=== PATIENT | female | born 1955 | race Caucasian/White ===

== ENCOUNTER → 2019-02-17 | Outpatient (CLI) | payer MEDICARE, BC ==
[2015-05-12 11:18] VITALS: BP 125/71
[~2019-02-17] MED LIST: FLUT1DIS3 IH; HYDR-2761 PO; IOHEXOL 240 MG/ML 50ML VIAL. PO ONE; IOHEXOL 300 MG/ML 100ML VIAL. IV ONE; LANS30CA PO; SERT100T8 PO; THEO400T2 PO; TRAZ-118 PO
--- NOTE | 2019-02-17 11:13 | KCIC ---
PQRS Compliance Statement: One or more of the following individualized dose reduction techniques were utilized for this examination: 1. Automated exposure control 2. Adjustment of the mA and/or kV according to patient size 3. Use of iterative reconstruction technique CT abdomen/pelvis with contrast 02/17/2019 10:00 AM INDICATION: Umbilical pain with severe abdominal pain radiating to the back. History of umbilical hernia repair. COMPARISON: None available TECHNIQUE: Multiple axial CT images of the abdomen and pelvis were obtained after the intravenous administration of 89 mL Omnipaque 300. Coronal and sagittal reformats are provided. FINDINGS: There is subsegmental atelectasis at the right lung base. Trace right pleural effusion. Heart size is within normal limits. Evaluation of the abdomen is limited by streak artifact from lumbar hardware. Liver, spleen, right adrenal gland and pancreas are normal. Suspect dilatation of the common bile duct measuring up to 12 mm status post cholecystectomy disc may represent reservoir effect. Left adrenal gland is difficult to adequately evaluate due to streak artifact. Abdominal aorta is obscured by streak artifact, limiting evaluation. Left total hip arthroplasty is identified with associated streak artifact limiting evaluation of the left hemipelvis. There may be trace fluid within the dependent portion of the pelvis. No definite free intraperitoneal air is visualized. Ventral local hernia repair changes are identified. No evidence for recurrent hernia. Opacified bowel loops since her normal mucosal fold pattern. There is no bowel obstruction. Trace free fluid is identified within the left upper quadrant within an area of mesenteric fat stranding. There may be a peritoneal nodule measuring 15 x 13 mm (series 2, image 21). Additional sites of peritoneal nodularity are suspected (series 2, image 33 measuring up to 17 x 9 mm in the left upper quadrant. The kidneys enhance symmetrically. There is no suspicious renal mass. There is no hydronephrosis. There are no suspected calculi within the kidneys, ureters or urinary bladder. Urinary bladder is within normal limits given degree of distention. Extensive posterior fusion hardware is identified from L1 through S1. Additional [place] rebeca is identified extending to the thoracic spine. Interbody fusion is noted at L3-L4, L4-L5 and L5-S1. IMPRESSION: 1. Limited evaluation secondary to the streak artifact from posterior fusion hardware of the thoracolumbar spine and left total hip arthroplasty. 2. Suspect peritoneal nodules within the left upper quadrant of the abdomen which raise concern for peritoneal carcinomatosis. Correlate with any underlying history of malignancy. Solid abdominal viscera are limited by streak artifact from posterior hardware. Consideration may be given for PET/CT for further evaluation. 3. Trace right pleural effusion. Electronically signed by: Haydee Abernathy MD (02/17/2019 11:10 AM) [facility]
== END | disposition home or self-care (01) ==
LOC: KCIC 08:54
PROVIDERS: ATTEND Nurse Practitioner Family
DX: R10.33 Periumbilical pain (principal); J98.11 Atelectasis; Z90.49 Acquired absence of other specified parts of digestive tract
CPT/HCPCS: 74177; 82565; Q9966; Q9967

== ENCOUNTER → 2020-11-08 | Outpatient (CLI) | payer MEDICARE, BC ==
[2015-05-12 11:18] VITALS: BP 125/71
[~2020-11-08] MED LIST changes: -IOHEXOL 240 MG/ML 50ML VIAL. PO ONE; -IOHEXOL 300 MG/ML 100ML VIAL. IV ONE; +SERT-268 PO; -SERT100T8 PO
--- NOTE | 2020-11-08 13:17 | KCIC ---
EXAM: DUAL ENERGY X-RAY ABSORPTIOMETRY (DEXA). HISTORY: Postmenopausal screening. FINDINGS: The lowest measured T-score is -0.9 in the right total femur, based on a bone mineral densi ty of 0.831 g/cm^2. Refer to the worksheets for full detail. No comparison examinations are available. IMPRESSION: Normal. Bone mineral density yields a T-score of -1.0 or greater. Fracture risk is low. FRAX was not calculated. METHODOLOGY: Dual energy x-ray absorptiometry was performed to measure bone mineral density. The foll owing analysis is based on the 2019 Official Positions of the International Society for Clinical Dens itometry: Measurements of the hips and the average of L1-L4 are preferred. When the spine and/or hip cannot be feasibly measured or interpreted, or in the setting of hyperparathyroidism, distal radial bone minera l density may be measured. The lumbar spine T-score is based on the average bone mineral density of L1-L4. In the setting of art ifact or anatomic abnormality, some lumbar levels may be excluded, and the remaining levels used for calculation. A single lumbar level is not used for diagnosis, and if only a single level is available for assessment, another anatomic site will be used to assign a diagnosis. The hip T-score is based on the bone mineral density measurement of the femoral neck or total proxima l femur of either side, whichever is lowest. Bilateral mean values are not used for diagnosis. The forearm T-score is derived from 33% of the distal radius of the nondominant forearm. For postmenopausal and perimenopausal women, and men age 50 or older, of all ethnic groups, T-scores are calculated through comparison of the current measurement with the NHANES III database standard fo r females aged 20-29 years. The lowest T-score of the evaluated anatomic sites is used to a ssign a diagnosis based on the World Health Organization densitometric classification. In premenopausal females and males younger than age 50, a Z-score is calculated based on population s pecific reference data for patient sex and self-reported ethnicity. Electronically signed by: Verónica Pickering MD (11/08/2020 1:14 PM) [id number]
== END ==
LOC: KCIC DEXA 11:10
PROVIDERS: ATTEND Nurse Practitioner Family
DX: M85.80 Other specified disorders of bone density and structure, unspecified site (principal); Z78.0 Asymptomatic menopausal state
CPT/HCPCS: 77080; 77081